=== PATIENT | female | born 1980 | race Caucasian/White ===

== ENCOUNTER 2018-04-25 14:12 | Emergency (ER) | payer BC ==
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
[2018-04-25] MEDS ORDERED: ACETAMINOPHEN 500 MG TAB ONE (16:20)
[2018-04-25 16:39] LABS: Urine Blood NEGATIVE (NEG); Urine Glucose NEGATIVE (NEG); Urine Protein NEGATIVE (NEG)
== END 2018-04-25 16:36 | disposition home or self-care (01) ==
LOC: ER 14:12
DX: S00.90XA Unspecified superficial injury of unspecified part of head, initial encounter (principal); S70.12XA Contusion of left thigh, initial encounter; V57.5XXA Driver of pick-up truck or van injured in collision with fixed or stationary object in traffic accident, initial encounter; O16.1 Unspecified maternal hypertension, first trimester; Z3A.01 Less than 8 weeks gestation of pregnancy
CPT/HCPCS: 70450; 76817; 81003; 81025; 99285